=== PATIENT | male | born 1985 | race Caucasian/White ===

== ENCOUNTER 2019-10-15 09:09 | Emergency (ER) | payer OTHER ==
[~2019-10-15] VITALS: Ht 182.9 cm; Wt 81.7 kg
[2019-10-15 09:53] VITALS: BP 136/90
== END 2019-10-15 09:54 | disposition home or self-care (01) ==
LOC: ER 09:09
DX: R05 Cough (principal); R42 Dizziness and giddiness; F12.90 Cannabis use, unspecified, uncomplicated; F17.210 Nicotine dependence, cigarettes, uncomplicated